=== PATIENT | male | born 1985 | race Caucasian/White ===

== ENCOUNTER 2017-05-08 11:16 | Emergency (ER) | payer OTHER ==
--- NOTE | 2017-05-08 11:22 | PDOC ---
History of Present Illness - General Chief Complaint: Pain, Acute Stated Complaint: LEFT ARM PAIN Time Seen by Provider: 05/08/17 11:22 Past History - Past Medical History Allergies/Adverse Reactions: Allergies Allergy/AdvReac Type Severity Reaction Status Date / Time No Known Allergies Allergy Verified 05/08/17 11:16 Home Medications: Ambulatory Orders Sulfamethoxazole/Trimethoprim [Bactrim Ds -] 1 tab PO BID #14 tablet 05/08/17 Anemia: No Asthma: No Cancer: No Cardiac Disorders: No CVA: No COPD: No CHF: No DVT: No Dementia: No Diabetes: No GI Disorders: Yes (PUD) Disorders: No HTN: No Hypercholesterolemia: No Liver Disease: No Seizures: No Thyroid Disease: No - Surgical History Abdominal Surgery: Yes (HERNIA) Appendectomy: No Cardiac Surgery: No Cholecystectomy: Yes Lung Surgery: No Neurologic Surgery: No Orthopedic Surgery: Yes (LEFT SHOULDER ARTHROSCOPIC SURGERY) - Immunization History Immunization Up to Date: No - Suicide/Smoking/Psychosocial Hx Smoking Status: No Smoking History: Former smoker Have you smoked in the past 12 months: No Number of Cigarettes Smoked Daily: 0 If you are a former smoker, when did you quit?: 6 MONTHS Information on smoking cessation initiated: No Hx Alcohol Use: Yes Drug/Substance Use Hx: No Substance Use Type: Alcohol Hx Substance Use Treatment: No *Physical Exam - Vital Signs Last Vital Signs Temp Pulse Resp BP Pulse Ox 97.6 F 77 15 137/91 99 05/08/17 11:16 05/08/17 11:16 05/08/17 11:16 05/08/17 11:16 05/08/17 11:16 *DC/Admit/Observation/Transfer Diagnosis at time of Disposition: Cellulitis of forearm, left - Discharge Dispostion Disposition: HOME Condition at time of disposition: Good Admit: No - Prescriptions Prescriptions: Sulfamethoxazole/Trimethoprim [Bactrim Ds -] 1 tab PO BID #14 tablet - Referrals - Patient Instructions Printed Discharge Instructions: DI for Cellulitis -- Adult Additional Instructions: return to the ED for fever, nausea and vomiting, chills, spreading redness that involves your hand or upper arm. Return to the ED in two days for a cellulitis check. Put warm compresses on the affected area 4 times a day. Make sure that you take the antibiotics until they are all gone. - Post Discharge Activity
[2017-05-08 11:26] VITALS: BP 137/91; PULSE 77; TEMP 97.6; BMI 33.2
[2017-05-08] MEDS ORDERED: SULFAMETHOXAZOLE/TRIMETHOPRIM 800MG/160MG D.S. TABLET PO ONE (11:32)
[2017-05-08] MEDS ORDERED: SULFAMETHOXAZOLE/TRIMETHOPRIM 800MG/160MG D.S. TABLET ONE (11:38)
== END 2017-05-08 11:42 | disposition home or self-care (01) ==
LOC: FER 11:16
DX: L03.114 Cellulitis of left upper limb (principal); Z87.891 Personal history of nicotine dependence
CPT/HCPCS: 99281-25

== ENCOUNTER 2017-05-09 12:35 | Inpatient (IN) | payer OTHER ==
--- NOTE | 2017-05-09 12:39 | PDOC ---
History of Present Illness - General Chief Complaint: Redness To Affected Area Stated Complaint: PROGRESSIVE LEFT ARM REDNESS Time Seen by Provider: 05/09/17 12:38 - History of Present Illness Initial Comments: 05/09/17 12:56 32yo male presents to the ED for eval of L arm swelling. Pt states he noticed the swelling on tuesday - states he thought he had an ingrown hair and started to pick at the skin. States he has been soaking the arm in the bathtub and some yellow fluid will drain out of his scabbed area that he was picking at. States he took amoxicillin on tuesday night. States he was seen in the ED yesterday and given bactrim that he has taken 3 doses of since being in the ED. States he was continuing to soak the arm at home at night, but noticed today that the redness and swelling was spreading. Now with redness and swelling to the elbow and wrist. States yesterday redness and swelling was in a [place] surrounding the scabbed area and now it is spreading circumfirentially around the arm and up to the arm. C/o worsening pain to the arm. Denies f/c. No cp/sob. No abd pain. No n/v/d. No dysuria. No other rashes or infections. No other complaints. 05/09/17 13:00 PMHx: PUD PSHx: sam, hernia repair, shoulder sx Allergies: nkda Meds: bactrim and motrin Social: denies smoking, drugs, social etoh Past History - Past Medical History Allergies/Adverse Reactions: Allergies Allergy/AdvReac Type Severity Reaction Status Date / Time No Known Allergies Allergy Verified 05/09/17 12:38 Home Medications: Ambulatory Orders Sulfamethoxazole/Trimethoprim [Bactrim Ds -] 1 tab PO BID #14 tablet 05/08/17 Anemia: No Asthma: No Cancer: No Cardiac Disorders: No CVA: No COPD: No CHF: No DVT: No Dementia: No Diabetes: No GI Disorders: Yes (PUD) Disorders: No HTN: No Hypercholesterolemia: No Liver Disease: No Seizures: No Thyroid Disease: No - Surgical History Abdominal Surgery: Yes (HERNIA) Appendectomy: No Cardiac Surgery: No Cholecystectomy: Yes Lung Surgery: No Neurologic Surgery: No Orthopedic Surgery: Yes (LEFT SHOULDER ARTHROSCOPIC SURGERY) - Immunization History Immunization Up to Date: No - Suicide/Smoking/Psychosocial Hx Smoking Status: No Smoking History: Former smoker Have you smoked in the past 12 months: No Number of Cigarettes Smoked Daily: 0 If you are a former smoker, when did you quit?: 6 MONTHS Hx Alcohol Use: Yes Drug/Substance Use Hx: No Substance Use Type: Alcohol Hx Substance Use Treatment: No Review of Systems - Review of Systems Able to Perform ROS?: Yes Is the patient limited [place] proficient: No Constitutional: No: Chills, Fever HEENTM: No: Nose Congestion, Throat Pain Respiratory: No: Cough, Shortness of Breath Cardiac (ROS): No: Chest Pain ABD/GI: No: Diarrhea, Nausea, Vomiting, Abdominal cramping : No: Burning Musculoskeletal: No: Back Pain Integumentary: Yes: Erythema, Rash, Other (worsening cellulitis to L arm) Neurological: No: Headache, Numbness All Other Systems: Reviewed and Negative *Physical Exam - Vital Signs 05/09/17 13:02 Selected Entries 05/09/17 12:35 Temperature 98.3 F Pulse Rate 91 H Respiratory 18 Rate Blood Pressure 136/87 O2 Sat by Pulse 99 Oximetry (%) Weight 102.058 kg - Physical Exam General Appearance: Yes: Nourished, Appropriately Dressed. No: Apparent Distress HEENT: positive: EOMI, Normal Voice Neck: positive: Supple Respiratory/Chest: positive: Lungs Clear, Normal Breath Sounds. negative: Respiratory Distress Cardiovascular: positive: Regular Rhythm, Regular Rate, S1, S2 Gastrointestinal/Abdominal: positive: Soft, Other (obese). negative: Guarding, Rebound Musculoskeletal: positive: Normal Inspection Extremity: positive: Normal Capillary Refill, Normal Range of Motion, Swelling, Erythema, Inflammation, Other (cellulitis with central area with a scab, indurated, no fluctuance, radial pulse intact, brisk cap refill, compartments soft) Integumentary: positive: Dry, Erythema, Swelling, Other (erythema warmth ttp over L upper extremity extending from elbow to wrist) Neurologic: positive: carbon accountant II-XII NML intact, Fully Oriented, Motor Strength 5/5 ED Treatment Course - LABORATORY CBC & Chemistry Diagram: 05/09/17 12:55 05/09/17 12:55 Medical Decision Making - Medical Decision Making 05/09/17 13:04 a/p: 32yo male with L arm cellulitis -has had 4 doses of abx without improvement -has had worsening of cellulitis to LUE with spreading erythema, warmth, swelling, ttp -bedside ultrasound shows cobblestoning without abscess formation -will check labs, cultures, will start iv abx given 4 doses of outpt abx without improvement -will give pain control -will monitor and reassess 05/09/17 14:26 pt updated on lab results. father at the bedside and updated on results. will keep pt for obs for failed outpt abx and l arm cellulitis that is worsening despite outpt abx. mildly elevated WBC. microblog sent to [employer] - awaiting call back 05/09/17 15:16 case discussed with Peg from [employer] - accepts pt to service - med/surg obs under Dr. Oquendo *DC/Admit/Observation/Transfer Diagnosis at time of Disposition: Cellulitis of forearm, left - Discharge Dispostion Condition at time of disposition: Stable Admit: Yes - Referrals - Patient Instructions - Post Discharge Activity
[2017-05-09 12:41] VITALS: BMI 33.2
[2017-05-09] MEDS ORDERED: VANCOMYCIN 1 GRAM (PRE-DOCKED) 1,000 MG/250 ML BAG IVPB ONE (12:52)
[2017-05-09] MEDS ORDERED: SODIUM CHLORIDE 0.9% 1000 ML INFUS.BAG IV ONE (13:05)
[2017-05-09] MEDS ORDERED: KETOROLAC TROMETHAMINE 30 MG/1 ML VIAL IVPUSH ONE (13:05)
[2017-05-09] MEDS ORDERED: KETOROLAC TROMETHAMINE 30 MG/1 ML VIAL ONE (13:09)
[2017-05-09] MEDS ORDERED: VANCOMYCIN 1,000 MG VIAL (RESTRICTED TO ID ONLY) ONE (13:09)
[2017-05-09 13:30] LABS: ALBUMIN 4.3 g/dl (3.5-5.0); ALK PHOS 117 U/L (32-92); ANION GAP 8 (8-16); BILIRUBIN,TOTAL 0.7 mg/dl (0.2-1.0); BLOOD UREA NITROGEN 14 mg/dl (7-18); CALCIUM 9.2 mg/dl (8.4-10.2); CHLORIDE 103 mmol/L (98-107); CO2 23 mmol/L (22-28); CREATININE 1.3 mg/dl (0.6-1.3); GLUCOSE,RANDOM 105 mg/dl (74-106); SGOT/AST 44 U/L (10-42); SGPT/ALT 80 U/L (10-40); SODIUM 134 mmol/L (136-145); TOT PROT 7.7 g/dl (6.4-8.3)
[2017-05-09 13:33] LABS: BASO % 0.6 % (0-2.0); EOS % 0.7 % (0-4.5); HEMATOCRIT 46.4 % (35.4-49); HEMOGLOBIN 16.2 GM/dl (11.7-16.9); LYMPH % 10.3 % (8-40); MCH 29.6 pg (25.7-33.7); MCHC 34.9 g/dl (32.0-35.9); MEAN CELL VOLUME 84.9 fl (80-96); MEAN PLT VOLUME 7.9 fl (7.5-11.1); MONO % 7.2 % (3.8-10.2); NEUT % 81.2 % (42.8-82.8); PLATELET COUNT 217 K/MM3 (134-434); RBC 5.47 M/mm3 (4.00-5.60); RDW 12.7 % (11.9-15.9); WHITE BLOOD COUNT 13.8 K/mm3 (4.0-10.8)
[2017-05-09] MEDS ORDERED: IBUPROFEN 600 MG TABLET (FP) PO PRN (19:19)
[2017-05-09] MEDS ORDERED: IBUPROFEN 400 MG TABLET (FP) PO ONE (22:57)
--- NOTE | 2017-05-09 23:16 | HP ---
CHIEF COMPLAINT: Left Arm Pain, Swelling, Redness PCP: HISTORY OF PRESENT ILLNESS: This is a 32 y/o man with past medical history PUD. Who presents to the ED for increased redness, swelling and pain to his L- arm. Patient reports having an ingrown hair that he scratched, which resulted in swelling. He reports soaking the arm in the bathtub, noting a scab which he picked resulted- yellow discharge. He reports taking Amoxicillin on Tuesday. He reports being seen and evaluated in ED yesterday for same- rx Bactrim taking 3 doses. Patient denies fever, chills, cough, SOB, CP, AP, N/V/D, constipation, dysuria ER course was notable for: (1) WBC 13.8 (2) AST/ALT/Alk Phos- 44/80/117 (3) Recent Travel: None PAST MEDICAL HISTORY: See HPI PAST SURGICAL HISTORY: L- Rotator Cuff Repair Social History: Smoking: Former Alcohol: Occasional Drugs: Denies Family History: Non-contributory Allergies No Known Allergies Allergy (Verified 05/09/17 12:38) HOME MEDICATIONS: Home Medications Medication Instructions Recorded Sulfamethoxazole/Trimethoprim 1 tab PO BID #14 tablet 05/08/17 [Bactrim Ds -] REVIEW OF SYSTEMS CONSTITUTIONAL: Absent: fever, chills, diaphoresis, generalized weakness, malaise, loss of appetite, weight change HEENT: Absent: rhinorrhea, nasal congestion, throat pain, throat swelling, difficulty swallowing, mouth swelling, ear pain, eye pain, visual changes CARDIOVASCULAR: Absent: chest pain, syncope, palpitations, irregular heart rate, lightheadedness , peripheral edema RESPIRATORY: Absent: cough, shortness of breath, dyspnea with exertion, orthopnea, wheezing, stridor, hemoptysis GASTROINTESTINAL: Absent: abdominal pain, abdominal distension, nausea, vomiting, diarrhea, constipation, melena, hematochezia GENITOURINARY: Absent: dysuria, frequency, urgency, hesitancy, hematuria, flank pain, genital pain MUSCULOSKELETAL: left forearm pain/swelling Absent: myalgia, arthralgia, joint swelling, back pain, neck pain SKIN: redness Absent: rash, itching, pallor HEMATOLOGIC/IMMUNOLOGIC: Absent: easy bleeding, easy bruising, lymphadenopathy, frequent infections ENDOCRINE: Absent: unexplained weight gain, unexplained weight loss, heat intolerance, cold intolerance NEUROLOGIC: Absent: headache, focal weakness or paresthesias, dizziness, unsteady gait, seizure, mental status changes, bladder or bowel incontinence PSYCHIATRIC: Absent: anxiety, depression, suicidal or homicidal ideation, hallucinations. PHYSICAL EXAMINATION Vital Signs - 24 hr 05/09/17 05/09/17 05/09/17 12:35 15:39 16:15 Temperature 98.3 F 98.8 F 97.7 F Pulse Rate 91 H 80 Pulse Rate [ 69 Left Apical] Respiratory 18 18 18 Rate Blood Pressure 136/87 107/59 Blood Pressure 125/70 [Right Arm] O2 Sat by Pulse 99 98 98 Oximetry (%) 05/09/17 05/09/17 19:13 22:00 Temperature 97.9 F Pulse Rate 76 Pulse Rate [ Left Apical] Respiratory 18 16 Rate Blood Pressure 121/65 Blood Pressure [Right Arm] O2 Sat by Pulse 98 97 Oximetry (%) GENERAL: Awake, alert, and fully oriented, in no acute distress. HEAD: Normal with no signs of trauma. EYES: Pupils equal, round and reactive to light, extraocular movements intact, sclera anicteric, conjunctiva clear. No lid lag. EARS, NOSE, THROAT: Ears normal, nares patent, oropharynx clear without exudates. Moist mucous membranes. NECK: Normal range of motion, supple without lymphadenopathy, JVD, or masses. LUNGS: Breath sounds equal, clear to auscultation bilaterally. No wheezes, and no crackles. No accessory muscle use. HEART: Regular rate and rhythm, normal S1 and S2 without murmur, rub or gallop. ABDOMEN: Soft, obese, nontender, not distended, normoactive bowel sounds, no guarding, no rebound, no masses. No hepatomegaly or splenomegaly. MUSCULOSKELETAL: Normal range of motion RUE, RLE, LLE joints. No bony deformities or tenderness. No CVA tenderness. LROM of LUE UPPER EXTREMITIES: 2+ pulses, warm, well-perfused. No cyanosis. No clubbing. No right peripheral edema. +1 left peripheral edema. LOWER EXTREMITIES: 2+ pulses, warm, well-perfused. No calf tenderness. No peripheral edema. NEUROLOGICAL: Cranial nerves II-XII intact. Normal speech. Gait not observed. PSYCHIATRIC: Cooperative. Good eye contact. Appropriate mood and affect. SKIN: Warm, dry, normal turgor, no rashes. Normal capillary refill. + Erythema, swelling with induration to left forearm, no fluctulance noted. Laboratory Results - last 24 hr 05/09/17 05/09/17 05/09/17 12:55 12:55 12:55 WBC 13.8 H D RBC 5.47 Hgb 16.2 Hct 46.4 MCV 84.9 MCH 29.6 MCHC 34.9 RDW 12.7 Plt Count 217 D MPV 7.9 D Neutrophils % 81.2 D Lymphocytes % 10.3 D Monocytes % 7.2 Eosinophils % 0.7 Basophils % 0.6 Sodium 134 L Potassium 4.0 Chloride 103 Carbon Dioxide 23 Anion Gap 8 BUN 14 Creatinine 1.3 Creat Clearance w eGFR > 60 Random Glucose 105 Lactic Acid 1.0 Calcium 9.2 Total Bilirubin 0.7 AST 44 H D ALT 80 H D Alkaline Phosphatase 117 H D Total Protein 7.7 Albumin 4.3 ASSESSMENT/PLAN: This is a 32 y/o man with PMHx PUD. Placed in Observation for Left Arm Cellulitis secondary to Failed Outpatient Therapy. Plan: 1. Left Arm Cellulitis - s/p Failed Outpatient Therapy - Blood Cultures-pending - WBC 13.8 - Vancomycin given in ED - Continue Vancomycin, add Clindamycin for MSSA coverage - Appreciate ID consult - Monitor CBC - Elevate extremity - Monitor vitals - Motrin- pain/fever 2. F/E/N - PO fluids - Replete lytes prn - Regular Diet 3. DVT Prophylaxis - OOB - SCDs - Consider AC if LOS > 48hrs Code Status: Full Code Dispo: Observation Problem List - Problem (1) Cellulitis of forearm, left Code(s): L03.114 - CELLULITIS OF LEFT UPPER LIMB (2) Leukocytosis Code(s): D72.829 - ELEVATED WHITE BLOOD CELL COUNT, UNSPECIFIED (3) DVT prophylaxis Code(s): LJN8880 - Visit type - Emergency Visit Emergency Visit: Yes ED Registration Date: 05/09/17 Care time: The patient presented to the Emergency Department on the above date and was hospitalized for further evaluation of their emergent condition. - New Patient This patient is new to me today: Yes Date on this admission: 05/09/17 - Critical Care Critical Care patient: No Hospitalist Screening - Colonoscopy Questionnaire Colonoscopy Questionnaire: Colonoscopy Questionnaire - Patient: 50 - 75 years old and never had a screening colonoscopy: No History of colon or rectal polyps, or CA: No History of IBD, Crohn's disease or UC: No History of abdominal radiation therapy as a child: No - Relative: 1 with colon or rectal CA, or polyps at age 60 or younger: No Colon or rectal CA diagnosed at age 45 or younger: No Multiple relatives with colon or rectal CA: No - Outcome: Screening Result: Negative Screen
[2017-05-10] MEDS: CLINDAMYCIN 900 MG PREMIX IVPB 900 MG/50 ML BAG IVPB SCH ×2 (01:54→09:12)
[2017-05-10] MEDS ORDERED: TETANUS AND DIPHTHERIA TOXOID 0.5 ML DISP.SYRIN IM ONE (07:00)
--- NOTE | 2017-05-10 07:06 | PN ---
Physical Exam: SUBJECTIVE: Patient seen and examined, reports pain to the left forearm, denies any paresthesia to the extremity OBJECTIVE: patient is a 32y/o male with a past medical history of PUD, patient was admitted from the emergency department for cellulitis and abscess after of left arm after failing outpatient therapy. Vital Signs Period Temp Pulse Resp BP Sys/Roca Pulse Ox Last 24 Hr 97.5 F-98.8 F 60-91 16-19 107-136/59-87 96-99 GENERAL: The patient is awake, alert, and fully oriented, in no acute distress. HEAD: Normal with no signs of trauma. EYES: PERRL, extraocular movements intact, sclera anicteric, conjunctiva clear. No ptosis. ENT: Ears normal, nares patent, oropharynx clear without exudates, moist mucous membranes. NECK: Trachea midline, full range of motion, supple. LUNGS: Breath sounds equal, clear to auscultation bilaterally, no wheezes, no crackles, no accessory muscle use. HEART: Regular rate and rhythm, S1, S2 without murmur, rub or gallop. ABDOMEN: Soft, nontender, nondistended, normoactive bowel sounds, no guarding, no rebound, no hepatosplenomegaly, no masses. EXTREMITIES: 2+ pulses, warm, well-perfused, no edema. LEFT UPPER EXTREMITY: posterior, 3cm fluctance with surrounding erythema not extending past markings NEUROLOGICAL: Cranial nerves II through XII grossly intact. Normal speech, gait not observed. PSYCH: Normal mood, normal affect. SKIN: Warm, dry, normal turgor, no rashes or lesions noted Laboratory Results - last 24 hr 05/09/17 05/09/17 05/09/17 12:55 12:55 12:55 WBC 13.8 H D RBC 5.47 Hgb 16.2 Hct 46.4 MCV 84.9 MCH 29.6 MCHC 34.9 RDW 12.7 Plt Count 217 D MPV 7.9 D Neutrophils % 81.2 D Lymphocytes % 10.3 D Monocytes % 7.2 Eosinophils % 0.7 Basophils % 0.6 Sodium 134 L Potassium 4.0 Chloride 103 Carbon Dioxide 23 Anion Gap 8 BUN 14 Creatinine 1.3 Creat Clearance w eGFR > 60 Random Glucose 105 Lactic Acid 1.0 Calcium 9.2 Total Bilirubin 0.7 AST 44 H D ALT 80 H D Alkaline Phosphatase 117 H D Total Protein 7.7 Albumin 4.3 Active Medications Generic Name Dose Route Start Last Admin Trade Name Freq PRN Reason Stop Dose Admin Vancomycin HCl 1,000 mg/ 250 mls @ 200 mls/hr 05/10/17 10:00 Dextrose IVPB Q12H JOVAN Clindamycin Phosphate 900 mg in 50 mls @ 100 mls/hr 05/10/17 02:00 05/10/17 01:54 Cleocin 900 Mg Premix Ivpb - IVPB 100 mls/hr Q8H-IV JOVAN Administration Ibuprofen 400 mg 05/09/17 19:19 05/09/17 23:06 Motrin - PO 400 mg Q6H PRN Administration PAIN OR FEVER Lactobacillus Acidophilus 1 tab 05/10/17 10:00 Bacid - PO DAILY JOVAN Microbiology 05/09/17 13:05 Blood - Peripheral Venous Blood Culture - Preliminary NO GROWTH OBTAINED AFTER 24 HOURS, INCUBATION TO CONTINUE FOR 4 DAYS. 05/09/17 12:55 Blood - Peripheral Venous Blood Culture - Preliminary NO GROWTH OBTAINED AFTER 24 HOURS, INCUBATION TO CONTINUE FOR 4 DAYS. ASSESSMENT/PLAN: 1.ID left arm cellulitis and abscess - failed outpatient therapy, I &D completed, wound culture sent, continue vanc and clinda - no leukocytosis, patient is afebrile -ID, Dr Escoto, consulted and following 2. F/E/N - PO fluids - Replete lytes prn - Regular Diet 3. DVT Prophylaxis - OOB - SCDs - Consider AC if LOS > 48hrs Code Status: Full Code Dispo: Observation Visit type - Emergency Visit Emergency Visit: Yes ED Registration Date: 05/10/17 Care time: The patient presented to the Emergency Department on the above date and was hospitalized for further evaluation of their emergent condition. - New Patient This patient is new to me today: No - Critical Care Critical Care patient: No - Discharge Referral Referred to [facility] Med P.C.: No
[2017-05-10 08:42] LABS: BASO % 0.2 % (0-2.0); EOS % 2.2 % (0-4.5); HEMATOCRIT 42.2 % (35.4-49); HEMOGLOBIN 14.3 GM/dl (11.7-16.9); LYMPH % 22.4 % (8-40); MCH 28.6 pg (25.7-33.7); MCHC 33.8 g/dl (32.0-35.9); MEAN CELL VOLUME 84.7 fl (80-96); MEAN PLT VOLUME 8.2 fl (7.5-11.1); MONO % 9.4 % (3.8-10.2); NEUT % 65.8 % (42.8-82.8); PLATELET COUNT 205 K/MM3 (134-434); RBC 4.98 M/mm3 (4.00-5.60); RDW 12.8 % (11.9-15.9); WHITE BLOOD COUNT 7.4 K/mm3 (4.0-10.8)
[2017-05-10 08:51] LABS: ANION GAP 4 (8-16); BLOOD UREA NITROGEN 13 mg/dl (7-18); CALCIUM 8.8 mg/dl (8.4-10.2); CHLORIDE 108 mmol/L (98-107); CO2 23 mmol/L (22-28); GLUCOSE,RANDOM 100 mg/dl (74-106); SODIUM 135 mmol/L (136-145)
[2017-05-10] MEDS: IBUPROFEN 400 MG TABLET (FP) PO PRN (09:11)
[2017-05-10] MEDS: LACTOBACILLUS ACIDOPHILUS 1 TABLET PO SCH (09:12)
[2017-05-10] MEDS ORDERED: DIPHTH,PERTUSS(ACELL),TET 0.5 ML DISP.SYRIN IM ONE (10:00)
[2017-05-10] MEDS ORDERED: VANCOMYCIN 1,000 MG in DEXTROSE 5%-WATER - 250 ML IVPB SCH (10:00)
--- NOTE | 2017-05-10 10:02 | PN ---
Progress Note (short form) - Note Progress Note: ID Consult dictated + soft tissue abscess L forearm Cellulitis L forearm Leukocytosis R/O Sepsis Await c/s Surgical evaluation Empiric vancomycin Waem compressses, analgesics prn
[2017-05-10] MEDS: VANCOMYCIN 1 GRAM (PRE-DOCKED) 1,000 MG/250 ML BAG IVPB SCH ×2 (10:34→22:10)
[2017-05-10] MEDS ORDERED: LIDOCAINE HCL 1%, 10 MG/ML (50 mL VIAL) SQ ONE (10:52)
--- NOTE | 2017-05-10 11:41 | CONS ---
DATE OF CONSULTATION: DATE OF DICTATION: 05/10/2017 HISTORY OF PRESENT ILLNESS: The patient is a 32-year-old previously healthy male evaluated for cellulitis of the left upper extremity. He reports that 1 week ago, on May 03, he noted what he had thought was an ingrown hair in his left forearm. He picked at it and subsequently developed a small scab. Patient continued to scratch at the scab and developed worsening erythema, warmth, and swelling of the left forearm. Symptoms became markedly worse on May 07. He presented to the emergency room on May 08, where he was found to have cellulitis of the left upper extremity. He was evaluated and was prescribed Bactrim. Despite taking 3 or 4 doses of Bactrim, he developed worsening pain, erythema, and swelling of the left forearm. He returned to the hospital, where he was admitted. Patient reported noting purulent drainage from the wound on the left forearm. He denied any associated fever or chills. He denies prior history of serious soft tissue infection requiring hospitalization, denies history of MRSA infection. PAST MEDICAL HISTORY: Negative. Patient is nondiabetic. Peptic ulcer disease. ALLERGIES: No known drug allergies. PAST SURGICAL HISTORY: Status post cholecystectomy and hernia repair, history of shoulder surgery. SYSTEMS REVIEW: Neurologic: No loss of consciousness, seizure activity, or focal weakness. Cardiac: Negative for chest pain or palpitations. Respiratory: Negative for cough or sputum production. Gastrointestinal: Negative for vomiting or diarrhea. Genitourinary: Negative for urinary tract infection. SOCIAL HISTORY: He is a former smoker. No history of alcohol or illicit drug use. 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 He denies any traumatic injury at work. No insect or animal bites or scratches. LABORATORY DATA: White count on admission 13.8, presently 7.4, hematocrit 42.2, platelet count 205. BUN 13, creatinine 1.0, total bilirubin 0.7, alkaline phosphatase 117, AST 44, ALT 80. Blood cultures pending. PHYSICAL EXAMINATION: General: The patient is awake and alert. He is not acutely toxic-appearing. Vital signs: Temperature 97.8, blood pressure 107/75, pulse 60 and regular, respirations 17 per minute. HEENT: Sclerae anicteric. Heart: Heart sounds S1, S2. Lungs: Clear. No rhonchi, rales, or wheezing. Abdomen: Soft, nontender. No mass, rebound, or rigidity. Extremities: Negative for pedal edema. Examination of the left upper extremity, there is erythema, warmth, and swelling involving primarily the flexor aspect of the left forearm. There is a 3-cm fluctuant erythematous swelling in the mid forearm with a central black eschar. It is tender to touch. There is no expressible pus. There is no lymphangitic streaking. IMPRESSION: 1. Left forearm soft tissue abscess. 2. Cellulitis of the left upper extremity. 3. Leukocytosis, possible sepsis secondary to skin infection. Await cultures, continue empiric vancomycin, surgical evaluation of the left forearm wound for possible incision and drainage, warm compresses, analgesics as needed. Will follow. Thank you for the kind referral. TATYANA ENCARNACION M.D. [id number]
[2017-05-10] MEDS ORDERED: HYDROmorphone HCL CARPU-JECT 1 MG/1 ML DISP.SYRIN IVPB ONE (12:30)
--- NOTE | 2017-05-10 13:19 | PROC ---
Incision and Drainage Indication/Location: abscess to left forearm Risks and Benefits Explained: Yes Consent on Chart: No (verbal consent ) Betadine cleansed: Yes Anesthesia: 1% Lidocaine Blade Size: 11 Drainage: 10ml of purulent drainage Irrigated with Normal Saline: Yes Iodinated Packin/2 in Sterile Dressing Applied: Yes - Remarks Remarks: patient tolerated procedure well wound culture sent.
[2017-05-10] MEDS ORDERED: ONDANSETRON 4 MG/2 ML VIAL IVPB ONE (13:45)
[2017-05-10] MEDS: FAMOTIDINE 20 MG TABLET PO SCH ×2 (14:09→22:10)
[2017-05-10] MEDS ORDERED: ACETAMINOPHEN 325 MG TABLET (FP) PO PRN (15:24)
[2017-05-10] MEDS ORDERED: ONDANSETRON *ODT* 4 MG TABLET SL PRN (15:26)
[2017-05-10] MEDS: oxyCODONE HCL 5 MG TABLET PO PRN (22:10)
[2017-05-11] MEDS: ZOLPIDEM TARTRATE 5 MG TABLET PO PRN (00:12)
[2017-05-11] MEDS: oxyCODONE HCL 5 MG TABLET PO PRN ×2 (06:03→18:39)
[2017-05-11 08:32] LABS: BASO % 0.3 % (0-2.0); EOS % 2.5 % (0-4.5); HEMATOCRIT 42.9 % (35.4-49); HEMOGLOBIN 14.9 GM/dl (11.7-16.9); LYMPH % 23.1 % (8-40); MCH 29.4 pg (25.7-33.7); MCHC 34.7 g/dl (32.0-35.9); MEAN CELL VOLUME 84.5 fl (80-96); MEAN PLT VOLUME 8.4 fl (7.5-11.1); MONO % 8.3 % (3.8-10.2); NEUT % 65.8 % (42.8-82.8); PLATELET COUNT 199 K/MM3 (134-434); RBC 5.07 M/mm3 (4.00-5.60); RDW 12.5 % (11.9-15.9)
[2017-05-11 08:54] LABS: ALBUMIN 3.6 g/dl (3.5-5.0); ALK PHOS 106 U/L (32-92); ANION GAP 5 (8-16); BILIRUBIN,TOTAL 0.6 mg/dl (0.2-1.0); BLOOD UREA NITROGEN 12 mg/dl (7-18); CALCIUM 8.7 mg/dl (8.4-10.2); CHLORIDE 104 mmol/L (98-107); CO2 27 mmol/L (22-28); CREATININE 1.2 mg/dl (0.6-1.3); GLUCOSE,RANDOM 102 mg/dl (74-106); PHOSPHOROUS 3.9 mg/dl (2.5-4.6); POTASSIUM 3.9 mmol/L (3.5-5.1); SGOT/AST 42 U/L (10-42); SGPT/ALT 86 U/L (10-40); SODIUM 136 mmol/L (136-145); TOT PROT 6.7 g/dl (6.4-8.3)
--- NOTE | 2017-05-11 09:14 | PN ---
Progress Note, Physician History of Present Illness: S/P I&D L forearm abscess No c/s pain at present No fever/ chills Tolerating antibiotic - Current Medication List Current Medications: Active Medications Acetaminophen (Tylenol -) 650 mg PO Q4H PRN PRN Reason: FEVER Last Admin: 05/11/17 06:02 Dose: 650 mg Famotidine (Pepcid -) 20 mg PO BID [facility] Last Admin: 05/10/17 22:10 Dose: 20 mg Vancomycin HCl (Vancomycin (Pre-Docked)) 1,000 mg in 250 mls @ 166.667 mls/hr IVPB Q12H [facility] Last Admin: 05/10/17 22:10 Dose: 166.667 mls/hr Ibuprofen (Motrin -) 400 mg PO Q6H PRN PRN Reason: PAIN OR FEVER Last Admin: 05/10/17 09:11 Dose: 400 mg Lactobacillus Acidophilus (Bacid -) 1 tab PO DAILY [facility] Last Admin: 05/10/17 09:12 Dose: 1 tab Ondansetron HCl (Zofran Odt -) 4 mg SL Q8H PRN PRN Reason: NAUSEA Oxycodone HCl (Roxicodone -) 5 mg PO Q6H PRN PRN Reason: PAIN LEVEL 7 - 10 Last Admin: 05/11/17 06:03 Dose: 5 mg Zolpidem Tartrate (Ambien -) 5 mg PO HS PRN PRN Reason: INSOMNIA Last Admin: 05/11/17 00:12 Dose: 5 mg - Objective Vital Signs: Vital Signs Temperature 97.7 F 05/11/17 06:00 Pulse Rate 77 05/11/17 06:00 Respiratory Rate 20 05/11/17 06:00 Blood Pressure 115/56 05/11/17 06:00 O2 Sat by Pulse Oximetry (%) 95 05/11/17 06:00 Constitutional: Yes: No Distress Eyes: Yes: Conjunctiva Clear Cardiovascular: Yes: Regular Rate and Rhythm, S1, S2 Respiratory: Yes: CTA Bilaterally Gastrointestinal: Yes: Normal Bowel Sounds, Soft. No: Tenderness Extremities: Yes: Other (L forearm incisional wound packed. Erythema of forearm nearly all resolved) Labs: CBC, BMP 05/11/17 07:53 05/11/17 07:53 Assessment/Plan S/P I&D L forearm abscess Cellulitis L forearm - improved Leukocytosis- resolved May resume po Bactrim pending c/s Outpatient followup
[2017-05-11] MEDS: IBUPROFEN 400 MG TABLET (FP) PO PRN (09:26)
[2017-05-11] MEDS: LACTOBACILLUS ACIDOPHILUS 1 TABLET PO SCH (09:26)
[2017-05-11] MEDS: FAMOTIDINE 20 MG TABLET PO SCH ×2 (09:26→21:47)
[2017-05-11] MEDS: VANCOMYCIN 1 GRAM (PRE-DOCKED) 1,000 MG/250 ML BAG IVPB SCH ×2 (10:00→21:48)
--- NOTE | 2017-05-11 12:48 | PN ---
Physical Exam: SUBJECTIVE: Patient seen and examined, reports feeling well, denies any fever OBJECTIVE: patient is a 32y/o male with a past medical history of PUD, patient was admitted from the emergency department for cellulitis and abscess after of left arm after failing outpatient therapy. Vital Signs Period Temp Pulse Resp BP Sys/Roca Pulse Ox Last 24 Hr 97.6 F-98.2 F 65-77 18-20 115-148/56-84 95-98 GENERAL: The patient is awake, alert, and fully oriented, in no acute distress. HEAD: Normal with no signs of trauma. EYES: PERRL, extraocular movements intact, sclera anicteric, conjunctiva clear. No ptosis. ENT: Ears normal, nares patent, oropharynx clear without exudates, moist mucous membranes. NECK: Trachea midline, full range of motion, supple. LUNGS: Breath sounds equal, clear to auscultation bilaterally, no wheezes, no crackles, no accessory muscle use. HEART: Regular rate and rhythm, S1, S2 without murmur, rub or gallop. ABDOMEN: Soft, nontender, nondistended, normoactive bowel sounds, no guarding, no rebound, no hepatosplenomegaly, no masses. EXTREMITIES: 2+ pulses, warm, well-perfused, no edema. LEFT LOWER EXTREMITY: 3cm of induration, packing changed, scant serrous drainage noted NEUROLOGICAL: Cranial nerves II through XII grossly intact. Normal speech, gait not observed. PSYCH: Normal mood, normal affect. SKIN: Warm, dry, normal turgor, no rashes or lesions noted Laboratory Results - last 24 hr 05/11/17 05/11/17 07:53 07:53 WBC 7.0 RBC 5.07 Hgb 14.9 Hct 42.9 MCV 84.5 MCH 29.4 MCHC 34.7 RDW 12.5 Plt Count 199 MPV 8.4 Neutrophils % 65.8 Lymphocytes % 23.1 Monocytes % 8.3 Eosinophils % 2.5 Basophils % 0.3 Sodium 136 Potassium 3.9 Chloride 104 Carbon Dioxide 27 Anion Gap 5 L BUN 12 Creatinine 1.2 Creat Clearance w eGFR > 60 Random Glucose 102 Calcium 8.7 Phosphorus 3.9 Magnesium 2.0 Total Bilirubin 0.6 AST 42 ALT 86 H Alkaline Phosphatase 106 H Total Protein 6.7 Albumin 3.6 Active Medications Generic Name Dose Route Start Last Admin Trade Name Kevynq PRN Reason Stop Dose Admin Acetaminophen 650 mg 05/10/17 15:24 05/11/17 06:02 Tylenol - PO 650 mg Q4H PRN Administration FEVER Famotidine 20 mg 05/10/17 13:30 05/11/17 09:26 Pepcid - PO 20 mg BID JOVAN Administration Vancomycin HCl 1,000 mg in 250 mls @ 166.667 mls/hr 05/10/17 10:30 05/11/17 10:00 Vancomycin (Pre-Docked) IVPB 166.667 mls/hr Q12H JOVAN Administration Ibuprofen 400 mg 05/10/17 09:06 05/11/17 09:26 Motrin - PO 400 mg Q6H PRN Administration PAIN OR FEVER Lactobacillus Acidophilus 1 tab 05/10/17 10:00 05/11/17 09:26 Bacid - PO 1 tab DAILY JOVAN Administration Ondansetron HCl 4 mg 05/10/17 15:26 Zofran Odt - SL Q8H PRN NAUSEA Oxycodone HCl 5 mg 05/10/17 15:25 05/11/17 06:03 Roxicodone - PO 5 mg Q6H PRN Administration PAIN LEVEL 7 - 10 Zolpidem Tartrate 5 mg 05/10/17 15:25 05/11/17 00:12 Ambien - PO 5 mg HS PRN Administration INSOMNIA Microbiology 05/10/17 13:30 Abscess Gram Stain - Final 05/10/17 13:30 Abscess Wound Culture - Preliminary Presumptive Mrsa (Pbp2a Pos) 05/09/17 13:05 Blood - Peripheral Venous Blood Culture - Preliminary NO GROWTH OBTAINED AFTER 24 HOURS, INCUBATION TO CONTINUE FOR 4 DAYS. 05/09/17 12:55 Blood - Peripheral Venous Blood Culture - Preliminary NO GROWTH OBTAINED AFTER 24 HOURS, INCUBATION TO CONTINUE FOR 4 DAYS. ASSESSMENT/PLAN: 1.ID left arm cellulitis and abscess - failed outpatient therapy, I &D (05/10/17) wound culture presum mrsa, continue vanc and clinda until final culturee - no leukocytosis, patient is afebrile -ID, Dr Escoto, consulted and following 2. F/E/N - PO fluids - Replete lytes prn - Regular Diet 3. DVT Prophylaxis - OOB - SCDs - Consider AC if LOS > 48hrs Code Status: Full Code Dispo: Observation Visit type - Emergency Visit Emergency Visit: Yes ED Registration Date: 05/10/17 Care time: The patient presented to the Emergency Department on the above date and was hospitalized for further evaluation of their emergent condition. - New Patient This patient is new to me today: No - Critical Care Critical Care patient: No - Discharge Referral Referred to [facility] No
[2017-05-12] MEDS: oxyCODONE HCL 5 MG TABLET PO PRN (00:15)
[2017-05-12] MEDS: ZOLPIDEM TARTRATE 5 MG TABLET PO PRN (00:15)
[2017-05-12] MEDS: FAMOTIDINE 20 MG TABLET PO SCH (09:21)
[2017-05-12] MEDS: IBUPROFEN 400 MG TABLET (FP) PO PRN (09:21)
[2017-05-12] MEDS: LACTOBACILLUS ACIDOPHILUS 1 TABLET PO SCH (10:00)
[2017-05-12] MEDS: VANCOMYCIN 1 GRAM (PRE-DOCKED) 1,000 MG/250 ML BAG IVPB SCH (10:00)
--- NOTE | 2017-05-12 12:42 | PN ---
Physical Exam: SUBJECTIVE: Patient seen and examined OBJECTIVE: Vital Signs Period Temp Pulse Resp BP Sys/Roca Pulse Ox Last 24 Hr 97.5 F-98.0 F 63-72 18-20 124-129/60-85 97-98 GENERAL: The patient is awake, alert, and fully oriented, in no acute distress. HEAD: Normal with no signs of trauma. EYES: PERRL, extraocular movements intact, sclera anicteric, conjunctiva clear. No ptosis. ENT: Ears normal, nares patent, oropharynx clear without exudates, moist mucous membranes. NECK: Trachea midline, full range of motion, supple. LUNGS: Breath sounds equal, clear to auscultation bilaterally, no wheezes, no crackles, no accessory muscle use. HEART: Regular rate and rhythm, S1, S2 without murmur, rub or gallop. ABDOMEN: Soft, nontender, nondistended, normoactive bowel sounds, no guarding, no rebound, no hepatosplenomegaly, no masses. EXTREMITIES: 2+ pulses, warm, well-perfused, no edema. NEUROLOGICAL: Cranial nerves II through XII grossly intact. Normal speech, gait not observed. PSYCH: Normal mood, normal affect. SKIN: Warm, dry, normal turgor, no rashes or lesions noted Active Medications Generic Name Dose Route Start Last Admin Trade Name Freq PRN Reason Stop Dose Admin Acetaminophen 650 mg 05/10/17 15:24 05/11/17 06:02 Tylenol - PO 650 mg Q4H PRN Administration FEVER Famotidine 20 mg 05/10/17 13:30 05/12/17 09:21 Pepcid - PO 20 mg BID JOVAN Administration Vancomycin HCl 1,000 mg in 250 mls @ 166.667 mls/hr 05/10/17 10:30 05/11/17 21:48 Vancomycin (Pre-Docked) IVPB 166.667 mls/hr Q12H JOVAN Administration Ibuprofen 400 mg 05/10/17 09:06 05/12/17 09:21 Motrin - PO 400 mg Q6H PRN Administration PAIN OR FEVER Lactobacillus Acidophilus 1 tab 05/10/17 10:00 05/11/17 09:26 Bacid - PO 1 tab DAILY JOVAN Administration Ondansetron HCl 4 mg 05/10/17 15:26 Zofran Odt - SL Q8H PRN NAUSEA Oxycodone HCl 5 mg 05/10/17 15:25 05/12/17 00:15 Roxicodone - PO 5 mg Q6H PRN Administration PAIN LEVEL 7 - 10 Zolpidem Tartrate 5 mg 05/10/17 15:25 05/12/17 00:15 Ambien - PO 5 mg HS PRN Administration INSOMNIA ASSESSMENT/PLAN:
--- NOTE | 2017-05-12 12:45 | DS ---
Physical Exam: SUBJECTIVE: Patient seen and examined, reports feeling much improved, denies any tactile fever, denies any paresthesia to the left upper extremity. OBJECTIVE: This is a 32 y/o man with past medical history PUD. Who presents to the ED for increased redness, swelling and pain to his L- arm. Patient reports having an ingrown hair that he scratched, which resulted in swelling. He reports soaking the arm in the bathtub, noting a scab which he picked resulted- yellow discharge. He reports taking Amoxicillin on Tuesday. He reports being seen and evaluated in ED yesterday for same- rx Bactrim taking 3 doses. Patient denies fever, chills, cough, SOB, CP, AP, N/V/D, constipation, dysuria ER course was notable for: (1) WBC 13.8 (2) AST/ALT/Alk Phos- 44/80/117 Vital Signs Period Temp Pulse Resp BP Sys/Roca Pulse Ox Last 24 Hr 97.5 F-98.0 F 63-72 18-20 124-129/60-85 97-98 PHYSICAL EXAM GENERAL: The patient is awake, alert, and fully oriented, in no acute distress. HEAD: Normal with no signs of trauma. EYES: PERRL, extraocular movements intact, sclera anicteric, conjunctiva clear. No ptosis. ENT: Ears normal, nares patent, oropharynx clear without exudates, moist mucous membranes. NECK: Trachea midline, full range of motion, supple. LUNGS: Breath sounds equal, clear to auscultation bilaterally, no wheezes, no crackles, no accessory muscle use. HEART: Regular rate and rhythm, S1, S2 without murmur, rub or gallop. ABDOMEN: Soft, nontender, nondistended, normoactive bowel sounds, no guarding, no rebound, no hepatosplenomegaly, no masses. EXTREMITIES: 2+ pulses, warm, well-perfused, no edema. LEFT LOWER EXTREMITY: 3cm of induration, packing removed, no drainage noted NEUROLOGICAL: Cranial nerves II through XII grossly intact. Normal speech, gait not observed. PSYCH: Normal mood, normal affect. SKIN: Warm, dry, normal turgor, no rashes or lesions noted LABS CBC WBC 7.0 K/mm3 (4.0-10.8) 05/11/17 07:53 RBC 5.07 M/mm3 (4.00-5.60) 05/11/17 07:53 Hgb 14.9 GM/dl (11.7-16.9) 05/11/17 07:53 Hct 42.9 % (35.4-49) 05/11/17 07:53 MCV 84.5 fl (80-96) 05/11/17 07:53 MCH 29.4 pg (25.7-33.7) 05/11/17 07:53 MCHC 34.7 g/dl (32.0-35.9) 05/11/17 07:53 RDW 12.5 % (11.9-15.9) 05/11/17 07:53 Plt Count 199 K/MM3 (134-434) 05/11/17 07:53 MPV 8.4 fl (7.5-11.1) 05/11/17 07:53 Neutrophils % 65.8 % (42.8-82.8) 05/11/17 07:53 Lymphocytes % 23.1 % (8-40) 05/11/17 07:53 Monocytes % 8.3 % (3.8-10.2) 05/11/17 07:53 Eosinophils % 2.5 % (0-4.5) 05/11/17 07:53 Basophils % 0.3 % (0-2.0) 05/11/17 07:53 CMP Sodium 136 mmol/L (136-145) 05/11/17 07:53 Potassium 3.9 mmol/L (3.5-5.1) 05/11/17 07:53 Chloride 104 mmol/L (98-107) 05/11/17 07:53 Carbon Dioxide 27 mmol/L (22-28) 05/11/17 07:53 Anion Gap 5 (8-16) L 05/11/17 07:53 BUN 12 mg/dl (7-18) 05/11/17 07:53 Creatinine 1.2 mg/dl (0.6-1.3) 05/11/17 07:53 Creat Clearance w eGFR > 60 (>60) 05/11/17 07:53 Random Glucose 102 mg/dl (74-106) 05/11/17 07:53 Lactic Acid 1.0 mmol/L (0.0-2.0) 05/09/17 12:55 Calcium 8.7 mg/dl (8.4-10.2) 05/11/17 07:53 Phosphorus 3.9 mg/dl (2.5-4.6) 05/11/17 07:53 Magnesium 2.0 mg/dL (1.8-2.4) 05/11/17 07:53 Total Bilirubin 0.6 mg/dl (0.2-1.0) 05/11/17 07:53 AST 42 U/L (10-42) 05/11/17 07:53 ALT 86 U/L (10-40) H 05/11/17 07:53 Alkaline Phosphatase 106 U/L (32-92) H 05/11/17 07:53 Total Protein 6.7 g/dl (6.4-8.3) 05/11/17 07:53 Albumin 3.6 g/dl (3.5-5.0) 05/11/17 07:53 Microbiology 05/10/17 13:30 Abscess Gram Stain - Final 05/10/17 13:30 Abscess Wound Culture - Preliminary Mr S Aureus 05/09/17 13:05 Blood - Peripheral Venous Blood Culture - Preliminary NO GROWTH OBTAINED AFTER 48 HOURS, INCUBATION TO CONTINUE FOR 3 DAYS. 05/09/17 12:55 Blood - Peripheral Venous Blood Culture - Preliminary NO GROWTH OBTAINED AFTER 48 HOURS, INCUBATION TO CONTINUE FOR 3 DAYS. HOSPITAL COURSE: left arm cellulitis and abscess - failed outpatient therapy, I &D (05/10/17) wound culture prelim mrsa, treated with vanc and clinda for 2 days - no leukocytosis, patient is afebrile -ID, Dr Escoto, consulted and followed PLAN - discharge on bactrim for 7 days - return precautions reviewed ie fever or increased redness to site must return to the emergency department Date of Admission:05/10/17 Date of Discharge: 05/12/17 Minutes to complete discharge: 45 Discharge Summary Reason For Visit: CELLULITIS OF LEFT FOREARM Current Active Problems Cellulitis of forearm, left (Acute) DVT prophylaxis (Acute) Leukocytosis (Acute) Condition: Improved - Instructions Diet, Activity, Other Instructions: you were admitted to the hospital for cellulites and abscess of the upper extremity. - continue bactrim daily for the next 7 days - your packing was removed today, you may take a shower and wash extremity with mild soap and water only - please follow up with your primary care physician within 1 week - if any fever, redness, or swelling develops please return to the emergency department, Referrals: Jean Paul Fernando MD [Staff Physician] - Rola Haynes MD [Staff Physician] - Disposition: HOME - Home Medications Comprehensive Discharge Medication List: Ambulatory Orders Sulfamethoxazole/Trimethoprim [Bactrim Ds -] 1 tab PO BID #14 tablet 05/08/17 This patient is new to me today: No Emergency Visit: Yes ED Registration Date: 05/10/17 Care time: The patient presented to the Emergency Department on the above date and was hospitalized for further evaluation of their emergent condition. Critical Care patient: No - Discharge Referral Referred to [facility] No
[2017-05-12 14:58] VITALS: BP 155/72; PULSE 66; TEMP 98.1
== END 2017-05-12 15:00 | disposition home or self-care (01) | DRG 383 ==
LOC: FER 12:35 → FM/S 14:37 → OBSVTOIN 05-10 15:22
PROVIDERS: ADMIT Internal Medicine; ATTEND Nurse Practitioner Family
PROC: 0J9F3ZZ Drainage of Left Upper Arm Subcutaneous Tissue and Fascia, Percutaneous Approach (ICD-10-PCS; principal; 2017-05-10)
DX: L02.414 Cutaneous abscess of left upper limb (principal); D72.829 Elevated white blood cell count, unspecified
CPT/HCPCS: 36415; 80048; 80053; 83605; 83735; 84100; 85025; 87040; 87070; 87186; 87205; 90715; 99283-25; G0378; J7030